=== PATIENT | female | born 1945 | race Caucasian/White ===

== ENCOUNTER 2017-03-27 12:42 | Inpatient (IN) | payer MEDICARE, BC ==
[2017-03-27 13:49] LABS: Hematocrit 30.7 % (36.0-47.0); Mean Platelet Volume 8.3 fL (7.4-10.4); Red Blood Cell (RBC) Count 3.34 mill/uL (4.20-5.40); White Blood Cell (WBC) Count 46.1 thou/uL (4.8-10.8)
[2017-03-27 14:05] LABS: ALT (SGPT) 30 U/L (8-55); AST (SGOT) 24 U/L (5-34); Alkaline Phosphatase 126 U/L (40-150); Anion Gap 14 mmol/L (10-20); BUN (Urea Nitrogen) 33 mg/dL (9.8-20.1); Bilirubin, Total 0.6 mg/dL (0.2-1.2); Calc. Creatinine Clearance 0 mL/min (70-130); Calcium 9.5 mg/dL (7.8-10.44); Carbon Dioxide 26 mmol/L (23-31); Chloride 97 mmol/L (98-107); Estimated GFR-MDRD 64; Protein, Total 6.9 g/dL (6.0-8.3)
[2017-03-27 14:09] LABS: Anisocytosis SLIGHT = 6-15 cells (100X) (0-5/hpf); Band 10 % (5-11); Metamyelocyte 2 % (0-0); Neutrophil 84 % (42-75); Ovalocytes SLIGHT = 2-5 cells (100X) (0-1/hpf); Polychromasia SLIGHT = 2-3 cells (100X) (0-2/hpf); Tear Drops SLIGHT = 2-5 cells (100X) (0-1/hpf); Toxic Granulation SLIGHT
[2017-03-27 14:31] LABS: Bilirubin Negative (Negative); Blood, Urine Negative (Negative); Glucose, Urine (Dipstick) >=1000 mg/dL (Negative); Ketone, Urine Negative (Negative); Nitrite Negative (Negative); Protein, Urine (Dipstick) Negative (Neg-Trace); Urobilinogen 0.2 mg/dL (0.2-1.0)
--- NOTE | 2017-03-27 15:57 | RAD ---
CHEST ONE VIEW: 03/27/17 HISTORY: Emergency exam. COMPARISON: Chest dated 10/12/16. FINDINGS: Port catheter tip sits at the inferior SVC. The lungs are clear. No pneumothorax or effusion. The ca rdiac silhouette and mediastinal contours are normal. There is enlargement of the pulmonary arteries. IMPRESSION: 1. Mild enlargement of the pulmonary arteries. 2. No acute intrathoracic abnormality. The known right upper lobe pulmonary nodule is not well seen on this examination. POS: [facility]
[2017-03-27] MEDS ORDERED: Ondansetron HCl/PF 4 MG/2 ML Vial IVP PRN (18:33)
[2017-03-27] MEDS ORDERED: Ondansetron ODT 4 MG TAB SL PRN (18:33)
[2017-03-27] MEDS ORDERED: HYDROcodone/Acetaminophen 5/325 mg Tablet PO PRN ×2 (18:33)
[2017-03-27] MEDS ORDERED: Acetaminophen 325 MG TAB PO PRN ×2 (18:33→21:18)
[2017-03-27] MEDS: Sodium Chloride 0.45% 1,000 ML IV SCH (21:08)
[2017-03-27] MEDS ORDERED: Ondansetron ODT 4 MG TAB PO PRN (21:18)
[2017-03-28 05:43] LABS: Anion Gap 13 mmol/L (10-20); BUN (Urea Nitrogen) 22 mg/dL (9.8-20.1); Calc. Creatinine Clearance 73 mL/min (70-130); Calcium 9.5 mg/dL (7.8-10.44); Carbon Dioxide 26 mmol/L (23-31); Chloride 100 mmol/L (98-107); Estimated GFR-MDRD 79
[2017-03-28 05:57] LABS: Band 8 % (5-11); Hematocrit 26.9 % (36.0-47.0); Mean Platelet Volume 8.7 fL (7.4-10.4); Neutrophil 89 % (42-75); Red Blood Cell (RBC) Count 2.89 mill/uL (4.20-5.40); White Blood Cell (WBC) Count 35.7 thou/uL (4.8-10.8)
[2017-03-28] MEDS ORDERED: Levothyroxine Sodium 75 MCG TAB PO SCH (06:00)
[2017-03-28] MEDS: Sodium Chloride 0.45% 1,000 ML IV SCH (06:24)
--- NOTE | 2017-03-28 08:24 | PDOC.FM ---
- Subjective Subjective: The patient reports improvement in her symptoms. She denies any dizziness, lightheadedness, blurry vision, SOB, chest pain, abdominal pain, N/V. She has been eating and drinking well. She has been up walking around with no difficulty. - Objective MAR Reviewed: Yes Vital Signs & Weight: Vital Signs (12 hours) Temp Pulse Resp BP Pulse Ox 03/28/17 08:00 99 F 87 16 97 03/28/17 04:18 97.9 F 89 16 126/69 98 03/28/17 00:36 98.9 F 90 16 130/59 L 98 Weight Weight 64.501 kg Result Diagrams: 03/28/17 04:49 03/28/17 04:49 Phys Exam - Physical Examination Constitutional: NAD HEENT: moist MMs Respiratory: no wheezing, no rales, no rhonchi, clear to auscultation bilateral Cardiovascular: RRR, no significant murmur, no rub Gastrointestinal: soft, non-tender, no distention, positive bowel sounds Musculoskeletal: no edema, pulses present Neurological: non-focal, moves all 4 limbs Psychiatric: normal affect, A&O x 3 Dx/Plan (1) Pre-syncope Status: Acute Plan: Likely orthostatic hypotension vs medication side effect from Neulasta. Will rule out cardiac causes -TTE -Carotid Dopplers -Orthostatic vitals (2) Pancreatic cancer metastasized to liver Code(s): C25.9 - MALIGNANT NEOPLASM OF PANCREAS, UNSPECIFIED; C78.7 - SECONDARY MALIG NEOPLASM OF LIVER AND INTRAHEPATIC BILE DUCT Status: Chronic Plan: Stage 4 pancreatic cancer, Dr. Monge is oncologist Recent treatment with Neulasta. Has chemo port in R side of chest. (3) History of pulmonary embolism Code(s): Z86.711 - PERSONAL HISTORY OF PULMONARY EMBOLISM Status: Acute Plan: Patient had elevated d-dimer to 0.5, but has h/o bilateral PE and is on Xarelto - she is very compliant with medications -Continue Xarelto (4) Leukocytosis Code(s): D72.829 - ELEVATED WHITE BLOOD CELL COUNT, UNSPECIFIED Status: Acute Qualifiers: Leukocytosis type: unspecified Qualified Code(s): D72.829 - Elevated white blood cell count, unspecified Plan: WBC count elevated to 46 initially, now 36 - likely 2/2 Neulasta -Will monitor (5) Anemia Code(s): D64.9 - ANEMIA, UNSPECIFIED Status: Acute Qualifiers: Anemia type: unspecified type Qualified Code(s): D64.9 - Anemia, unspecified Plan: Patient has chronic anemia, stable -Will monitor (6) Thrombocytopenia Code(s): D69.6 - THROMBOCYTOPENIA, UNSPECIFIED Status: Acute Plan: Thrombocytopenia, downtrending -Will monitor (7) CKD (chronic kidney disease) stage 2, GFR 60-89 ml/min Code(s): N18.2 - CHRONIC KIDNEY DISEASE, STAGE 2 (MILD) Status: Acute Plan: CKD stage 2, stable -Will monitor (8) Hypothyroidism Code(s): E03.9 - HYPOTHYROIDISM, UNSPECIFIED Status: Acute Qualifiers: Hypothyroidism type: unspecified Qualified Code(s): E03.9 - Hypothyroidism , unspecified Plan: continue synthroid (9) Hypertension Code(s): I10 - ESSENTIAL (PRIMARY) HYPERTENSION Status: Chronic Qualifiers: Hypertension type: essential hypertension Plan: Continue home meds
[2017-03-28] MEDS ORDERED: Alogliptin 25 MG TAB PO SCH (09:00)
[2017-03-28] MEDS ORDERED: Amlodipine 5 mg/Benazepril 10 mg CAP PO SCH (09:00)
[2017-03-28] MEDS ORDERED: Aspirin 81 mg Enteric Coated Tablet PO SCH (09:00)
[2017-03-28] MEDS ORDERED: Rivaroxaban 15 MG TAB PO SCH (09:00)
[2017-03-28] MEDS ORDERED: Atenolol 50 MG TAB PO SCH (09:00)
[2017-03-28] MEDS ORDERED: Ubidecarenone 50 MG CAP PO SCH (09:00)
[2017-03-28] MEDS ORDERED: FLU VACC TS2017-18 (>65YR) 0.5 ML SYRINGE IM ONE (09:00)
[2017-03-28] MEDS ORDERED: Famotidine 20 MG TAB PO SCH (09:00)
[2017-03-28 10:43] VITALS: TEMP 99
[2017-03-28 11:40] VITALS: BP 123/57
--- NOTE | 2017-03-28 12:16 | ULT ---
ULTRASOUND CAROTID DOPPLER: Date: 03/28/17 HISTORY: Presyncope. COMPARISON: None. TECHNIQUE: Real-time Dickey scale, color Doppler, and spectral analysis of the extracranial carotid arteries and vertebral arteries. FINDINGS: There is elevated peak systolic velocity in the distal right internal carotid artery. Right vertebra l artery is patent. Antegrade flow. Left vertebral artery is patent with antegrade flow. No elevated peak systolic velocity of any left internal carotid artery. IMPRESSION: 1. 50-69% stenosis of the distal right internal carotid artery. CT angiogram may be beneficial. 2. Antegrade flow both vertebral arteries. CODE T. POS: [facility]
--- NOTE | 2017-03-28 16:11 | EKG ---
Test Reason : Blood Pressure : / mmHG Vent. Rate : 087 BPM Atrial Rate : 087 BPM P-R Int : 192 ms QRS Dur : 090 ms QT Int : 388 ms P-R-T Axes : 055 042 032 degrees QTc Int : 466 ms Normal sinus rhythm Normal ECG When compared with ECG of 27-MAR-2017 13:09, (Unconfirmed) Nonspecific T wave abnormality no longer evident in Anterior leads Confirmed by DR. Adenike SALGADO ([id number]) on 03/28/2017 4:10:56 PM Referred By: MALIKA Confirmed By:DR. Adenike SALGADO
--- NOTE | 2017-03-28 19:28 | ADD-PRG ---
ADDENDUM DATE OF SERVICE: 03/28/2017 This is an addendum to the note of Dr. Kavita Lawrence. Ms. Chan is a pleasant 71-year-old white female who unfortunately has a stage IV pancreatic can cer and is on chemotherapy. 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 She is completely asymptomatic now and is having no issues whatever. S he is completely awake, alert, oriented, and in no distress. I doubt that these symptoms represents TIA, which she is undergoing a TIA type workup. Her carotid Doppler study shows a 50% to 69% steno sis of the right internal carotid artery and CTA has been advised by the radiologist. Given her andrade creatic cancer, I am uncertain how aggressive we are going to be in working up her further. In the event, she is clinically and neurologically stable at this point and we await further testing.
[2017-03-28] MEDS ORDERED: Atorvastatin Calcium 10 MG TAB PO SCH (21:00)
--- NOTE | 2017-03-29 13:47 | EKG ---
Test Reason : Blood Pressure : / mmHG Vent. Rate : 080 BPM Atrial Rate : 080 BPM P-R Int : 184 ms QRS Dur : 090 ms QT Int : 396 ms P-R-T Axes : 061 039 027 degrees QTc Int : 456 ms Normal sinus rhythm Normal ECG Confirmed by ANA LEE, CHEN ([id number]), multimedia editor NANNETTE PEREZ ([id number]) on 03/29/2017 1:47:00 PM Referred By: Confirmed By:CHEN PEREZ MD
--- NOTE | 2017-03-30 20:26 | DIS-2 ---
DATE OF ADMISSION: 03/27/2017 DATE OF DISCHARGE: 03/28/2017 ADMITTING RESIDENT: Bennie Marie DO DISCHARGE RESIDENT: Kavita Lawrence MD ADMITTING ATTENDING: Bettye Hernandez M.D. DISCHARGE ATTENDING: Sunil Moon MD. CONSULTATIONS: None. PROCEDURES: None. IMAGING DATA: 1. Carotid Doppler study showed 50%-69% stenosis of the distal right internal carotid artery. CT a ngiogram may be beneficial, antegrade flow in both vertebral arteries. 2. Chest x-ray, mild enlargement of the pulmonary arteries, known right upper lobe pulmonary nodule , not well seen on this examination. No acute intrathoracic abnormality. PRIMARY DIAGNOSES: 1. Presyncope. 2. Leukocytosis. 3. Thrombocytopenia. 4. Anemia. 5. Stage IV pancreatic cancer. SECONDARY DIAGNOSES: 1. History of pulmonary embolism. 2. Chronic kidney disease stage 2. 3. Hypothyroidism. 4. Hypertension. DISCHARGE MEDICATIONS: 1. Januvia 100 mg p.o. q.a.m. 2. CoQ10 200 mg p.o. b.i.d. 3. Xarelto 15 mg p.o. b.i.d. 4. Compazine 10 mg p.o. q. 6 hours p.r.n. 5. Omeprazole 20 mg p.o. daily. 6. Morphine ER 30 mg p.o. b.i.d. 7. Synthroid 75 mcg p.o. at bedtime. 8. Farxiga 10 mg p.o. q.a.m. 9. Atorvastatin 10 mg p.o. daily. 10. Atenolol 50 mg p.o. q.a.m. 11. Aspirin 81 mg p.o. daily. 12. Amlodipine/benazepril 5mg/10 mg 1 cap p.o. daily. DISCONTINUED MEDICATIONS: None. HOSPITAL COURSE: This is a 71-year-old female with past medical history of stage IV pancreatic canc er, hypothyroidism, hypertension, previous PE, who presented to the ED after almost passing out and was found to have an elevated white count to 46,000. She had recently had a dose of Neulasta and th is was likely the cause of her leukocytosis. She reports that she has not had as much to drink as s he probably should have sometimes, difficult to force herself to drink fluids throughout the day. S he was given fluids which improved her symptoms significantly. She had an elevated D-dimer at 0.5, but she is on Xarelto for a previous pulmonary embolism and is compliant with her medication and she is not having any tachycardia or tachypnea. I encouraged her to continue taking her Xarelto. She may have had some element of hyperviscosity from the leukocytosis causing her symptoms as well. An echo was done, the results are still pending. Carotid Dopplers were ordered that showed 50%-69% emma nosis of the distal right internal carotid artery and recommended CT angiogram. This result was don e after the patient was already discharged, so Dr. Alicea, who is the patient's primary care physicia n, will need to follow up on this. DISPOSITION: Stable. DISCHARGE INSTRUCTIONS: 1. Location: Home. 2. Diet: Heart healthy. 3. Activity: As tolerated. 4. Follow up with Dr. Alicea within 7 days to discuss the results of the carotid Doppler study.
--- NOTE | 2017-03-30 21:31 | HP-2 ---
DATE OF SERVICE: 03/27/2017 DATE OF ADMISSION: 03/27/2017 LOCATION: [place], [place]. COSIGNER: Sunil Moon MD CODE STATUS: DO NOT RESUSCITATE. PRIMARY CARE PHYSICIAN: Steve Alicea M.D. ATTENDING PHYSICIAN: Sunil Moon MD RESIDENT PHYSICIAN: Bennie Marie DO HISTORY: Provided by the patient. CHIEF COMPLAINT: Dizziness, presyncope. 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 She reports EMS was called and stabilized her. They then left the scene. Afte r she recovered, however, she experienced another similar episode shortly after that and was subsequ ently taken to the emergency department. The patient states she was given a Neulasta one day prior to these events and per the patient and her the last time she received this medication she h ad similar type symptoms, but additionally some associated shortness of breath. In the ED, she was given Tylenol and Zofran. PAST MEDICAL HISTORY: 1. Pancreatic cancer on chemotherapy, history of pulmonary embolism, currently being treated on Xar elto. 2. Type 2 diabetes. 3. Hypertension. 4. Hypothyroid. 5. Gastroesophageal reflux disease. PAST SURGICAL HISTORY: MediPort. ALLERGIES: CEPHALOSPORINS and BACTRIM. MEDICATIONS: 1. Januvia 100 mg daily. 2. Levothyroxine 75 mcg daily. 3. Atenolol 50 mg daily. 4. Chlorthalidone 25 mg daily. 5. Potassium chloride 10 mEq 2 times a day. 6. Farxiga 10 mg daily. 7. Xarelto 20 mg daily. 8. Glimepiride. 9. Tramadol. 10. Morphine. 11. Ativan. 12. [place]. SOCIAL HISTORY: Nonsmoker, nondrinker, no drug use. REVIEW OF SYSTEMS: General: Patient denies fever, chills, weight, appetite and sleep changes. Denies fatigue. Eyes: Patient complains of vision changes prior to the episode; however, reports they are returned to [facility] now. ENT: Denies nasal congestion or rhinorrhea. Respiratory: Denies cough, congestion, sh ortness of breath and exercise intolerance. Cardiovascular: Denies chest pain, palpitations. Amado rointestinal: Denies nausea, vomiting, diarrhea, constipation, abdominal pain. Neurologic: Compla ins of weakness and presyncopal episode as well as dizziness. PHYSICAL EXAMINATION: VITAL SIGNS: Blood pressure 110/55, pulse 91, respirations 16, T-max 99, pulse ox 97% on room air, current weight 55 kilograms. GENERAL: Patient is alert, oriented, no acute distress, well-nourished, appropriately interactive. EYES: Conjunctivae within normal limits. CARDIOVASCULAR: Regular rate and rhythm. No murmurs, rubs or gallops. Radial pulse 2+. Pedal pul se 2+. RESPIRATORY: Normal effort, no retractions. LUNGS: Clear to auscultation bilaterally. SKIN: Warm and dry. No cyanosis. ABDOMEN: Soft, nontender. Normoactive bowel sounds in all 4 quadrants. No masses, distention or o rganomegaly. EXTREMITIES: No clubbing, cyanosis or edema. NEUROLOGIC: No focal deficits. Cranial nerves II-XII are intact. GCS 15. LABORATORY DATA: White blood cell count 46,000, hemoglobin 9.3, hematocrit 30.7, platelets 108. So dium 133, potassium 3.8, chloride 97, bicarbonate 26, BUN 33, creatinine 0.88, glucose 249, calcium 9.5, total protein 6.9, albumin 3.9, AST 24, ALT 30, alkaline phosphatase 136, total bilirubin 0.6. D-dimer 0.5. EKG showed normal sinus rhythm. Chest x-ray showed mild enlargement of the pulmonary arteries, but no acute intrathoracic abnormalit y. ASSESSMENT AND PLAN: 1. Presyncope. We will admit for observation and telemetry, check carotid Dopplers. Get a transth oracic echocardiogram. Check orthostatics. Patient will be given light IV fluid hydration at 100 m L per hour normal saline. 2. History of pulmonary embolism. The patient will be continued on Xarelto. 3. Hypertension. Resume home medications. 4. Pancreatic cancer. Control pain while in the hospital. Consider Oncology consult if patient st ays extended.. 5. Type 2 diabetes. Continue home medications. 6. Hypothyroid. Continue home medications. 7. Prophylaxis. The patient will be placed on SCDs, continued with Xarelto for deep venous thrombo sis prophylaxis and given a PPI for gastrointestinal prophylaxis. DISPOSITION: Length of hospital stay is less than or equal 2 days. Symptomatic medication will be provided. History and physical exam as well as management was discussed with Dr. Sunil Moon, who agrees wi th the above history, physical exam, assessment and plan as otherwise noted in his addendum.
== END 2017-03-28 13:34 | disposition home or self-care (01) | DRG 815 ==
LOC: ERS 12:42 → T4-A 17:09 → 2SE 03-28
PROVIDERS: ADMIT Family Medicine; ATTEND Family Medicine
DX: D72.829 Elevated white blood cell count, unspecified (principal); C25.9 Malignant neoplasm of pancreas, unspecified; C78.7 Secondary malignant neoplasm of liver and intrahepatic bile duct; E11.22 Type 2 diabetes mellitus with diabetic chronic kidney disease; D69.6 Thrombocytopenia, unspecified; D64.9 Anemia, unspecified; I65.21 Occlusion and stenosis of right carotid artery; I12.9 Hypertensive chronic kidney disease with stage 1 through stage 4 chronic kidney disease, or unspecified chronic kidney disease; T45.8X5A Adverse effect of other primarily systemic and hematological agents, initial encounter; Z66 Do not resuscitate; Z86.711 Personal history of pulmonary embolism; Z79.01 Long term (current) use of anticoagulants; Z92.21 Personal history of antineoplastic chemotherapy; N18.2 Chronic kidney disease, stage 2 (mild); E03.9 Hypothyroidism, unspecified; K21.9 Gastro-esophageal reflux disease without esophagitis
CPT/HCPCS: 36415; 36416; 71010; 80048; 80053; 81003; 85025; 85379; 93005; 93010; 93306; 93880; 94760

== ENCOUNTER 2017-04-15 15:59 | Day surgery (SDC) | payer MEDICARE, BC ==
[2017-04-15] MEDS ORDERED: diphenhydrAMINE 25 MG CAP PO SCH (17:00)
[2017-04-15] MEDS ORDERED: Acetaminophen 500 MG TAB PO SCH (17:00)
[2017-04-15 23:19] VITALS: BP 151/71; TEMP 97.8
== END 2017-04-15 23:51 | disposition home or self-care (01) ==
LOC: ONC/OP 15:59
PROVIDERS: ATTEND Internal Medicine Medical Oncology
PROC: 30233N1 Transfusion of Nonautologous Red Blood Cells into Peripheral Vein, Percutaneous Approach (ICD-10-PCS; principal; 2017-04-15)
DX: D64.9 Anemia, unspecified (principal); D69.59 Other secondary thrombocytopenia; C25.9 Malignant neoplasm of pancreas, unspecified; E11.9 Type 2 diabetes mellitus without complications; I10 Essential (primary) hypertension; E03.9 Hypothyroidism, unspecified; K21.9 Gastro-esophageal reflux disease without esophagitis; Z79.84 Long term (current) use of oral hypoglycemic drugs; Z79.1 Long term (current) use of non-steroidal anti-inflammatories (NSAID); Z79.82 Long term (current) use of aspirin; Z79.01 Long term (current) use of anticoagulants; Z79.891 Long term (current) use of opiate analgesic; Z79.2 Long term (current) use of antibiotics; Z79.899 Other long term (current) drug therapy; Z88.1 Allergy status to other antibiotic agents; Z88.2 Allergy status to sulfonamides; Z91.040 Latex allergy status; Z95.828 Presence of other vascular implants and grafts; Z86.711 Personal history of pulmonary embolism
CPT/HCPCS: 36430; 86850; 86900; 86901; P9016

== ENCOUNTER 2017-05-21 13:00 | Outpatient (CLI) | payer MEDICARE, BC | END 2017-05-21 13:01 | disposition home or self-care (01) | LOC: BICRAD 13:00 | PROVIDERS: ATTEND Internal Medicine Medical Oncology | DX: C25.2 Malignant neoplasm of tail of pancreas (principal); J98.4 Other disorders of lung | CPT/HCPCS: 71020; 80053; 82248; 83615; 84100; 84550; 86301 ==

== ENCOUNTER 2017-05-27 09:08 | Outpatient (CLI) | payer MEDICARE, BC ==
[2017-05-27] MEDS ORDERED: Iopamidol 370 76% 100 ML VIAL ONE (11:39)
--- NOTE | 2017-05-27 12:26 | CT ---
CT CHEST AND ABDOMEN WITH IV CONTRAST: INDICATIONS: History of pancreatic cancer with hepatic metastatic disease. COMPARISON: Prior CT of the chest, abdomen, and pelvis dated 10/10/[address] of the abdomen and pelvis dated . FINDINGS: The 5 mm pulmonary nodule within the right upper lobe is stable. No new pulmonary nodule is evident. There is mild bibasilar atelectasis. There are shotty appearing lymph nodes within the mediastinum. The right chest wall port is stable. There are scattered vascular calcifications involving the coronary artery and thoracic aorta. There is mild bibasilar atelectasis with small bilateral pleural effusions, which is new. The 1.2 cm hypodense nodule involving the right hepatic lobe on image 51 of series 2 is stable. The 2.4 x 3.1 cm hypodense mass involving the right hepatic lobe in segment 6 is stable, on image 62 of s eries 2. The heterogeneous but predominantly hypodense pancreatic tail mass is slightly decreased in size, now measuring 2.7 x 1.7 cm. The hypodensity involving the inferior pole of the left spleen has diminished in size. There is some cortical retraction seen involving the lower aspect of the spleen, likely reflecting sequela of a pr ior partial splenic wedge infarction. There are bilateral renal cysts that are similar. No definite pathologically enlarged lymph nodes ar e seen within the upper abdomen. There are scattered vascular calcifications. No definite acute osseous abnormality is evident. There is a stable sclerotic lesion within the righ t aspect of L4, suspicious for a small bone island. There is a stable hemangioma within the right aspect of T4. There is an additional suspected bony he mangioma seen within the right aspect of T7. IMPRESSION: 1. Hypodense mass involving the pancreatic tail has decreased in size, likely reflecting response to therapy. 2. Right upper lobe pulmonary nodule and hepatic lesions are stable. 3. Stable bilateral renal cysts. 4. Slight interval decrease of the hypodensity involving the inferior pole of the spleen, likely ref lecting sequela of a healing partial splenic infarction. POS: [facility]
== END 2017-05-27 09:09 | disposition home or self-care (01) ==
LOC: CT 09:08
PROVIDERS: ATTEND Internal Medicine Medical Oncology
DX: C25.2 Malignant neoplasm of tail of pancreas (principal); R91.1 Solitary pulmonary nodule; K76.9 Liver disease, unspecified; N28.1 Cyst of kidney, acquired; D73.89 Other diseases of spleen; K86.89 Other specified diseases of pancreas
CPT/HCPCS: 71260; 74160

== ENCOUNTER 2017-07-11 09:43 | Outpatient (CLI) | payer MEDICARE, BC ==
--- NOTE | 2017-07-11 14:15 | CT ---
CT CHEST WITH IV CONTRAST CT ABDOMEN WITH IV CONTRAST: HISTORY: Malignant neoplasm tail of pancreas, calcium of pancreas. The patient is currently on chemotherapy. FINDINGS: Comparison is made with the exam of 05/27/17. No mediastinal, hilar, or axillary mass or lymphadenopathy is see. A few prominent mediastinal lymph nodes are stable. No pleural or pericardial effusions are identified. The 5 mm parenchymal nodule in the right upper lobe and the 3 mm nodule in the left upper lobe are stable. No new pulmonary nodu les or masses are seen. The 3 cm mass in the posterior segment of the right lobe of the liver is stable. The low-density les ion in the anterior aspect of the liver adjacent the falciform ligament appears smaller on the curren t exam. No new liver lesions are seen. No calcified gallstones are seen. Bilateral renal cysts are again noted. Adrenal glands are unremarkable. The 2.7 cm predominately hypodense pancreatic tail mass is stable. Hypodensity in the spleen and cortical infarction in the spleen are again seen. No free air, free fluid, or lymphadenopathy is noted in the abdomen. There are vascular calcificatio ns without evidence of aneurysmal dilatation of the thoracoabdominal aorta. The circumaortic left re nal vein is seen. The small bowel loops are not abnormally dilated. There are hemangiomas in the T4 and T7 vertebrae and small sclerotic lesion within the right aspect o f L4 and likely bone island are again seen. No new osteoblastic lesions are identified. IMPRESSION: No significant interval change since 05/27/17. POS: [facility]
[2017-07-11] MEDS ORDERED: Iopamidol 370 76% 100 ML VIAL ONE (17:18)
== END 2017-07-11 09:44 | disposition home or self-care (01) ==
LOC: CT 09:43
PROVIDERS: ATTEND Internal Medicine Medical Oncology
DX: C25.2 Malignant neoplasm of tail of pancreas (principal); Z88.2 Allergy status to sulfonamides; Z88.1 Allergy status to other antibiotic agents
CPT/HCPCS: 71260; 74160

== ENCOUNTER 2017-09-25 09:02 | Outpatient (CLI) | payer MEDICARE, BC ==
[2017-09-25] MEDS ORDERED: ISOVUE-370 76%-LOCM 1 ML ONE (13:22)
== END 2017-09-25 09:03 | disposition home or self-care (01) ==
LOC: BICCT 09:02
PROVIDERS: ATTEND Internal Medicine Medical Oncology
DX: C25.2 Malignant neoplasm of tail of pancreas (principal); R91.8 Other nonspecific abnormal finding of lung field; K76.89 Other specified diseases of liver
CPT/HCPCS: 71260; 74177

== ENCOUNTER 2017-12-01 17:52 | Emergency (ER) | payer MEDICARE, BC ==
[2017-12-01 19:08] LABS: Hemoglobin 8.8 g/dL (12.0-16.0); Mean Corpuscular HGB CONC 33.6 g/dL (32.0-36.0); Mean Corpuscular Hemoglobin 31.2 pg (27.0-31.0); Mean Corpuscular Volume 92.8 fL (78.0-98.0); Platelet Count 32 thou/uL (130-400); RBC Distribution Width 17.2 % (11.5-14.5); Red Blood Cell (RBC) Count 2.83 mill/uL (4.20-5.40); White Blood Cell (WBC) Count 18.4 thou/uL (4.8-10.8)
--- NOTE | 2017-12-01 19:14 | RAD ---
FOUR VIEWS LEFT KNEE: Date: 12-01-17 Comparison: None. History: Pain, malignancy. FINDINGS: There is mild to moderate degenerative change involving the medial and lateral compartments with join t space narrowing, subchondral sclerosis and osteophyte formation. There is a moderate knee joint eff usion. There is severe patellofemoral joint space narrowing with osteophyte formation and subchondral sclerosis. No displaced fracture or dislocation. Rounded calcification projects posterior to the kne e joint on the lateral view measuring 1.1 cm which may represent intraarticular loose body formation. IMPRESSION: Prominent degenerative change. Knee joint effusion. No acute fracture or dislocation seen. POS: [facility]
[2017-12-01 19:20] LABS: ALT (SGPT) 28 U/L (8-55); AST (SGOT) 19 U/L (5-34); Albumin 3.7 g/dL (3.4-4.8); Alkaline Phosphatase 150 U/L (40-150); Anion Gap 12 mmol/L (10-20); BUN (Urea Nitrogen) 17 mg/dL (9.8-20.1); Bilirubin, Total 0.3 mg/dL (0.2-1.2); Calc. Creatinine Clearance 0 mL/min (70-130); Calcium 9.1 mg/dL (7.8-10.44); Carbon Dioxide 25 mmol/L (23-31); Chloride 101 mmol/L (98-107); Estimated GFR-MDRD 55; Globulin 2.6 g/dL (2.4-3.5); Glucose 106 mg/dL (83-110); Potassium 3.4 mmol/L (3.5-5.1); Protein, Total 6.3 g/dL (6.0-8.3); Sodium 135 mmol/L (136-145)
[2017-12-01] MEDS ORDERED: Ondansetron HCl/PF 4 MG/2 ML Vial ONE (19:34)
[2017-12-01 19:37] LABS: Anisocytosis SLIGHT = 6-15 cells (100X) (0-5/hpf); Band 8 % (5-11); Lymphocytes 1 % (21-51); MDiff Complete? YES; Monocytes 1 % (0-10); Neutrophil 90 % (42-75); Ovalocytes SLIGHT = 2-5 cells (100X) (0-1/hpf); PLT Morphology Comment Appears Decreased; Tear Drops SLIGHT = 2-5 cells (100X) (0-1/hpf)
[2017-12-01] MEDS ORDERED: Lidocaine 1% w/Epinephrine 1:100K 20 ML VIAL ONE (19:55)
[2017-12-01] MEDS ORDERED: HYDROcodone/Acetaminophen 5/325 mg Tablet ONE (20:43)
== END 2017-12-01 20:50 | disposition home or self-care (01) ==
LOC: ERS 17:52
DX: M25.462 Effusion, left knee (principal); M17.12 Unilateral primary osteoarthritis, left knee; T45.1X5A Adverse effect of antineoplastic and immunosuppressive drugs, initial encounter; E11.9 Type 2 diabetes mellitus without complications; C25.9 Malignant neoplasm of pancreas, unspecified; I10 Essential (primary) hypertension; Z79.899 Other long term (current) drug therapy; Z79.84 Long term (current) use of oral hypoglycemic drugs
CPT/HCPCS: 20610; 80053; 85025; 85652; 86140; 87070; 87205; 96374; 96375; J2001; J2270; J2405

== ENCOUNTER 2017-12-08 09:59 | Outpatient (CLI) | payer MEDICARE, BC | END 2017-12-08 10:00 | disposition home or self-care (01) | LOC: BICRAD 09:59 | PROVIDERS: ATTEND Internal Medicine Medical Oncology | DX: C25.2 Malignant neoplasm of tail of pancreas (principal) | CPT/HCPCS: 71046; 80053; 81001; 82248; 83615; 84100; 84550; 87086 ==

== ENCOUNTER 2017-12-12 10:46 | Day surgery (SDC) | payer MEDICARE, BC ==
[2017-12-11 14:48] VITALS: BMI 23.4
[2017-12-12] MEDS ORDERED: Lidocaine 2% 10 ML INJ ONE (12:24)
[2017-12-12] MEDS ORDERED: Bupivacaine/Epinephrine 0.25% 30 ML VIAL ONE (12:39)
[2017-12-12] MEDS ORDERED: Levofloxacin 500 mg/D5W 100 ml Premix Bag ONE (13:05)
[2017-12-12] MEDS ORDERED: Fentanyl 100 MCG/2 ML VIAL ONE (13:12)
--- NOTE | 2017-12-12 14:30 | RAD ---
AP VIEW OF THE CHEST: INDICATION: Postop MediPort placement. COMPARISON: Prior exam dated 03/27/17. FINDINGS: There is a left IJ chest wall port in place. The previously seen right IJ chest wall port has been r emoved. Typical calcification is seen of the SVC. Lungs are clear. No acute osseous abnormality is evident. Mild cardiomegaly is stable. IMPRESSION: New left internal jugular chest wall port without evidence of complication. Removal of previously se en right internal jugular chest wall port. POS: [facility]
[2017-12-12] MEDS ORDERED: Lidocaine 1% PF 5 ML VIAL ONE (15:12)
--- NOTE | 2017-12-12 20:09 | OP ---
DATE OF PROCEDURE: 12/12/2017 PREOPERATIVE DIAGNOSIS: Pancreatic cancer. POSTOPERATIVE DIAGNOSIS: Pancreatic cancer. PROCEDURE: Tunneled central line subcutaneous port (MediPort, CT injectable). SURGEON: Dr. Castro. ANESTHESIA: TIVA local. ESTIMATED BLOOD LOSS: Minimal. COMPLICATIONS: None. SPECIMEN: None. FINDINGS: The tip of the catheter was at the atriocaval junction. TECHNIQUE: The patient was taken to the operating room and placed supine on the table. After genera l anesthetic was obtained, bilateral neck and chest is prepped and draped in a sterile fashion. Loca l anesthetic infiltrated over the left internal jugular vein. Intrajugular vein cannulated using a 2 2-gauge finder needle followed by a Seldinger needle. Wire was passed into the superior vena cava un sachin fluoroscopic guidance. A small amaury was made at the wire entrance site. A separate 3 cm is made in the left upper chest. Tubing for the MediPort tunneled from inferior to superior incision. Sutu re sheath was placed over the wire into the superior vena cava under fluoroscopic guidance. The dila tor wire removed. The end of the catheter shredded into the sheath as the sheath is peeled away. Th e tip of the catheter is at the atriocaval junction. Tubing is cut to fit the MediPort at the lower incision and the MediPort is sewn to the chest wall and subcutaneous pocket using Prolene. The wound s were irrigated. The MediPort is flushed with a heparin flush. The wounds are all closed using 3-0 Vicryl, 4-0 Monocryl, and Dermabond. The patient was en route to recovery in stable condition. All instrument counts, needle counts, and lap counts were correct.
== END 2017-12-12 14:57 | disposition home or self-care (01) ==
LOC: SDC 10:46
PROVIDERS: ATTEND Surgery
PROC: 0JH60XZ Insertion of Tunneled Vascular Access Device into Chest Subcutaneous Tissue and Fascia, Open Approach (ICD-10-PCS; principal; 2017-12-12)
PROC: 02HV33Z Insertion of Infusion Device into Superior Vena Cava, Percutaneous Approach (ICD-10-PCS; 2017-12-12)
PROC: B518ZZA Fluoroscopy of Superior Vena Cava, Guidance (ICD-10-PCS; 2017-12-12)
DX: C25.9 Malignant neoplasm of pancreas, unspecified (principal); Z91.040 Latex allergy status; Z88.1 Allergy status to other antibiotic agents; Z88.2 Allergy status to sulfonamides; Z88.8 Allergy status to other drugs, medicaments and biological substances; Z79.899 Other long term (current) drug therapy
CPT/HCPCS: 36561; 71045; 82962; C1788; 36416; J1642; J1956; J2001; J3010

== ENCOUNTER 2017-12-26 09:00 | Outpatient (CLI) | payer MEDICARE, BC ==
[2017-12-26] MEDS ORDERED: ISOVUE-370 76%-LOCM 1 ML ONE (11:53)
== END 2017-12-26 09:01 | disposition home or self-care (01) ==
LOC: BICCT 09:00
PROVIDERS: ATTEND Internal Medicine Medical Oncology
DX: C25.2 Malignant neoplasm of tail of pancreas (principal); C78.7 Secondary malignant neoplasm of liver and intrahepatic bile duct; R91.8 Other nonspecific abnormal finding of lung field; R16.0 Hepatomegaly, not elsewhere classified
CPT/HCPCS: 71260; 74160

== ENCOUNTER 2018-02-24 11:44 | Outpatient (CLI) | payer MEDICARE, BC ==
--- NOTE | 2018-02-24 14:38 | RAD ---
CHEST TWO VIEWS: History: Cough x 2 weeks. Comparison: 12-12-17 FINDINGS: Left sided Mediport catheter terminates in the SVC/right atrial junction. Normal cardiac silhouette. There is atherosclerosis of the aorta. Pulmonary vessels are upper limits of normal. Increased inters titial opacities are noted. No consolidation. No pleural effusion or pneumothorax. IMPRESSION: 1. Pulmonary vascular prominence. 2. Interstitial prominence, correlate for edema. Superimposed infiltrate cannot be excluded. Continue d surveillance is recommended. POS: [facility]
== END 2018-02-24 11:45 | disposition home or self-care (01) ==
LOC: BICRAD 11:44
PROVIDERS: ATTEND Family Medicine
DX: R05 Cough (principal)
CPT/HCPCS: 71046

== ENCOUNTER 2018-03-16 13:14 | Outpatient (CLI) | payer MEDICARE, BC ==
--- NOTE | 2018-03-16 15:41 | RAD ---
CHEST 2 VIEWS: COMPARISON: 02/24/2018. HISTORY: Pancreatic cancer. FINDINGS: Atherosclerosis of the aorta. Stable left-sided MediPort catheter. Normal cardiac silhouette. The pulmonary vessels and hilum are normal. Costophrenic angles are clear. No mass. No consolidation. No pneumothorax or osseous abnormalities. IMPRESSION: No acute cardiopulmonary process. POS: [facility]
== END 2018-03-16 13:15 | disposition home or self-care (01) ==
LOC: BICRAD 13:14
PROVIDERS: ATTEND Internal Medicine Medical Oncology
DX: C25.2 Malignant neoplasm of tail of pancreas (principal)
CPT/HCPCS: 71046

== ENCOUNTER 2018-03-20 09:57 | Outpatient (CLI) | payer MEDICARE, BC ==
[2018-03-20] MEDS ORDERED: Iopamidol 370 76% 100 ML VIAL ONE (10:38)
--- NOTE | 2018-03-20 17:26 | CT ---
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 Followup pancreatic cancer. Metastatic lesions to the dani er. COMPARISON: 12/26/17. CT THORAX: Left sided Mediport catheter remains in lace. There is an area of scarring and soft tissue density se en in the region of previous Mediport in the right upper chest. Subcutaneous emphysema in this region has resolved. Tip of the left internal jugular vein Mediport catheter is within the distal SVC. Vascular calcifications are again seen in the coronary arteries and involving the thoracic aorta. Calcifications seen in the left lobe of the thyroid gland. No enlarged lymph nodes are seen by CT size criteria. There is stable lymph nodes in a pretracheal lo cation but are not enlarged. There is a stable 5 mm pulmonary nodule in the medial aspect of the right upper lobe as well as a sta ble approximately 4 mm pulmonary nodule in the left upper lobe. There has been interval development o f a few tiny 3 mm or less pulmonary nodules within the right middle lobe and right lower lobe as well as at the left lower lobe. There is also a pleural based nodular density measuring 7 mm at the poste romedial right lung base with a few adjacent tiny pulmonary nodules which were not seen on prior exam . No lytic or sclerotic osseous lesions are seen. Mild degenerative changes are seen in the thoracic sp ine. CT ABDOMEN: Hypodense lesion within the inferior aspect posterior segment right hepatic lobe is again seen. Howev er, this lesion has enlarged previously measuring 3.2 cm in greatest dimension, now measures 3.8 cm. No additional hepatic lesion is appreciated. Previously noted lesion in the tail of the pancreas is n ot visualized. There are linear areas of diminished attenuation, but no discrete measureable mass is seen. Linear area of diminished attenuation is again seen in the spleen. Subcentimeter too small to characterize hypodense lesions are again seen in each kidney. The bilateral adrenal glands and opacified small bowel demonstrate a normal CT appearance. Vascular calcifications seen in the abdominal aorta and involving the iliac arteries. Incidental note is made of a retroaortic left renal vein. There is a stable sclerotic density seen within the L4 vertebral body which has characteristics most suggestive of a bone island. No additional lytic or sclerotic osseous lesions are identified. IMPRESSION: 1. Mild interval enlargement of the hypodense metastatic lesion in the posterior segment right h epatic lobe. 2. Small bilateral pulmonary nodules, but there has also been interval development of new pulmon alek nodules measuring 4 mm or less scattered within the lungs as described above, greater number at t he right lung base compared to the prior exam. 3. Previously noted cystic mass tail of the pancreas is not visualized. There is diminished atte nuation now present in this region. 4. No evidence of lymphadenopathy. 5. Stable enlargement of the thyroid gland with calcification in the left lobe of the thyroid gl and. 6. Interval placement of a left internal jugular vein Mediport catheter. POS: BRAYAN
== END 2018-03-20 09:58 | disposition home or self-care (01) ==
LOC: CT 09:57
PROVIDERS: ATTEND Internal Medicine Medical Oncology
DX: C25.2 Malignant neoplasm of tail of pancreas (principal); K76.9 Liver disease, unspecified; R91.8 Other nonspecific abnormal finding of lung field; E04.9 Nontoxic goiter, unspecified; E07.9 Disorder of thyroid, unspecified
CPT/HCPCS: 71260; 74160; 82565

== ENCOUNTER 2018-07-14 08:58 | Outpatient (CLI) | payer MEDICARE, BC ==
[2018-07-14] MEDS ORDERED: ISOVUE-370 76%-LOCM 1 ML ONE (09:56)
--- NOTE | 2018-07-14 11:31 | CT ---
CT CHEST WITH CONTRAST: CT ABDOMEN WITH CONTRAST: HISTORY: Malignancy at tail of pancreas. The patient is on chemotherapy. COMPARISON: CT chest and abdomen from 03/20/2018. FINDINGS: There are multiple calcifications in the left lobe of the thyroid, which is mildly enlarged. A Port- A-Cath is in place with the tip in good position, in the inferior SVC. No pericardial effusion. No mediastinal adenopathy. No axillary adenopathy. No internal mammary adenopathy. No new suspicious pulmonary nodules. The 5-6 mm pulmonary nodule, right upper lobe, is unchanged. I t appears to have some central calcifications, which may be benign. No pleural effusion. No signifi cant pericardial fluid. A 4 mm nodule in a left accessory lingular fissure is similar. Mass in hepatic segment 6 is unchanged from comparison examinations and is centrally necrotic with so me peripheral capsular retraction, likely old, healed, treated metastatic focus. Scarring of the andrade creatic tail. No peripancreatic adenopathy. Hypodensity, inferior pole, left kidney, is similar. Centrally necrotic retroperitoneal lymph node, adjacent to the celiac trunk, is similar. BONES: No suspicious osteolytic or osteoblastic lesions. IMPRESSION: 1. No evidence of new metastatic disease in the chest or abdomen. 2. Pulmonary nodules are similar in size and not definitively metastatic. 3. Necrotic, treated hepatic segment 6 metastatic focus, without enlargement or solid component. 4. Unchanged cystic treated left paraceliac lymph node. 5. Similar appearance of the thyroid, for which non-emergent ultrasound may be beneficial, if clinic ally warranted. POS: TPC
== END 2018-07-14 08:59 | disposition home or self-care (01) ==
LOC: BICCT 08:58
PROVIDERS: ATTEND Internal Medicine Medical Oncology
DX: C25.2 Malignant neoplasm of tail of pancreas (principal); R91.8 Other nonspecific abnormal finding of lung field; K76.89 Other specified diseases of liver; I89.9 Noninfective disorder of lymphatic vessels and lymph nodes, unspecified
CPT/HCPCS: 71260; 74160; Q9966

== ENCOUNTER 2019-01-15 07:39 | Outpatient (CLI) | payer MEDICARE, BC ==
--- NOTE | 2019-01-15 09:37 | CT ---
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 COMPARISON: CT chest/abdomen on 03/20/2018. FINDINGS: CHEST: The 5 mm right upper lobe pulmonary nodule in the right middle lobe (axial image 27 of 62 of series 3 and coronal image 40 of 145 of series 601) is shown to have calcification on the coronal image, and is consistent with a benign calcified granuloma. The tiny, 4 mm pulmonary nodule in the anterior portion of the left lung (axial image 29 of 60, serie s 3, and coronal image 56 of 145, series 601) is unchanged compared to 03/20/2018 and unchanged since the CT pulmonary angiogram of 09/02/2016, and is also benign. It could be an intrapulmonary lymph n ode. The other very tiny pulmonary nodules mentioned on the 03/20/2018 have not changed and are highly lik talon to be benign. There are no suspicious pulmonary nodules. No mediastinal or hilar lymphadenopath y. No cardiomegaly, pleural effusion, or pneumothorax. No air space opacity or pneumothorax. No th oracic aortic aneurysm or dissection. Left IJ implantable vascular access port remains with the dist al tip at the SVC. No interval change. ABDOMEN: The low density, circumscribed lesion in hepatic segment 6 of the right lobe previously measured appr oximately 3.0 x 3.8 x 2.8 cm. It currently measures approximately 2.6 x 3.7 x 2.8 cm. The slight di fferences may be attributable to slight variation in placement of cursors. It has probably not signi ficantly changed. It is certainly no larger than it was before (but it is larger than on the CT of 0 09/30/2016). No new hepatic lesions. Small cortical cyst at the lower pole of the left kidney. No h ydronephrosis bilaterally. Heterogeneous enhancement pattern of the spleen. The spleen measures sloan roximately 13 x 10 x 4 cm. No interval change. Atherosclerotic calcification without aneurysm of ab dominal aorta. No mass or acute pancreatitis identified (the mass at the tail of the pancreas on 12/2016 is no longer present). No interval change in the appearance of the pancreas since 03/20/2018 . No adrenal nodule. No obvious pathology identified involving the visualized upper portions of col on and small intestine. The soft tissue density material with irregular shape abutting the left side of the celiac artery, anterior surface of left diaphragmatic martir, and the left anterior portion of the upper abdominal aorta measures approximately 1.8 x 2.1 x 2.1 cm (axial image 56 of 87, series 2; coronal image 72 of 145, series 601). This is presumably a treated upper retroperitoneal lymph node. No ascites. No destructive osseous lesion. No interval change overall since 03/20/2018. IMPRESSION: 1. No interval change overall since 03/20/2018. 2. The treated metastatic lesion in the right lobe of the liver is unchanged. 3. The treated left upper retroperitoneal celiac axis lymphadenopathy is unchanged. 4. No evidence of neoplasm recurrence at tail of pancreas. 5. Tiny benign pulmonary nodules, unchanged. POS: TPC
[2019-01-15] MEDS ORDERED: Iopamidol 370 76% 100 ML VIAL ONE (10:55)
== END 2019-01-15 07:40 | disposition home or self-care (01) ==
LOC: CT 07:39
PROVIDERS: ATTEND Internal Medicine Medical Oncology
DX: C25.2 Malignant neoplasm of tail of pancreas (principal); K76.9 Liver disease, unspecified; R59.0 Localized enlarged lymph nodes; R91.8 Other nonspecific abnormal finding of lung field
CPT/HCPCS: 71260; 74160; Q9967

== ENCOUNTER 2019-03-31 13:12 | Outpatient (CLI) | payer MEDICARE, BC ==
--- NOTE | 2019-03-31 13:41 | BD ---
DEXA BONE DENSITY STUDY: HISTORY: Postmenopausal and malignant neoplasm to the tail of the pancreas. FINDINGS: Lumbar Spine: BMD (g/cm2) L1 0.954 T-Score: -0.3 L2 0.936 T-Score: -0.8 L3 0.947 T-Score: -1.2 L4 0.985 T-Score: -0.7 L1-L4 0.956 T-Score: -0.8 Femoral Neck: 0.682 T-Score: -1.5 Total Femur: 0.848 T-Score: -0.8 Impression: 1. Normal bone mineral density of the lumbar spine. Osteopenia of the left femoral neck. 2. Ten-year fracture risk of a major osteoporotic fracture is 11% and of a hip fracture 1.9%. These fracture probabilities are calculated for an untreated patient. POS: TPC
== END 2019-03-31 13:13 | disposition home or self-care (01) ==
LOC: BICMAMMO 13:12
PROVIDERS: ATTEND Internal Medicine Medical Oncology
DX: C25.2 Malignant neoplasm of tail of pancreas (principal)
CPT/HCPCS: 77080

== ENCOUNTER 2019-08-24 08:09 | Outpatient (CLI) | payer MEDICARE, BC ==
[2019-08-24] MEDS ORDERED: Iopamidol-370 76% 500 ML 1 ML ONE (09:59)
--- NOTE | 2019-08-24 10:30 | CT ---
CT CHEST WITH IV CONTRAST CT ABDOMEN WITH IV CONTRAST CT PELVIS WITH IV CONTRAST: HISTORY: Malignant neoplasm of tail of pancreas. Other long-term (current) drug therapy. COMPARISON: 01/15/2019. FINDINGS: Calcifications in the left lobe of the thyroid gland are again noted. No mediastinal, hilar, or axil mj mass or lymphadenopathy is seen. No pleural or pericardial effusions are identified. The small parenchymal lung nodules are stable including the right upper lobe, right lower lobe and the left ac cessory lingular fissure. No new lung nodules are seen. The 3.4 x 2.9 cm low-density mass in the hepatic segment 6 is stable. Left celiac axis lymph node cu rrently measures 13 x 14 cm and is smaller compared to the previous day. The spleen, pancreas, adren al glands, and small cysts in the superior pole of the right kidney and inferior pole of the left kid emil are stable. Circumaortic left renal vein is again seen. No free air, free fluid, or new abdomin opelvic lymphadenopathy is identified. The small bowel loops are not abnormally dilated. Calcified uterine fibroid is seen. There are vascular calcifications without evidence of aneurysmal dilatation of the thoracoabdominal a mariana. There are degenerative changes in the thoracolumbar spine. No osteolytic or osteoblastic lesi ons are seen. IMPRESSION: Interval reduction in the size of the left celiac axis lymph node; otherwise, stable exam. POS: WESA
== END 2019-08-24 08:10 | disposition home or self-care (01) ==
LOC: BICCT 08:09
PROVIDERS: ATTEND Internal Medicine Medical Oncology
DX: C25.2 Malignant neoplasm of tail of pancreas (principal); C78.00 Secondary malignant neoplasm of unspecified lung; C78.7 Secondary malignant neoplasm of liver and intrahepatic bile duct
CPT/HCPCS: 71260; 74177; Q9967

== ENCOUNTER 2019-12-23 12:25 | Outpatient (CLI) | payer MEDICARE, BC ==
--- NOTE | 2019-12-23 13:39 | PET ---
PET W CT Skull to Mid Thigh History: Malignant neoplasm tail of pancreas. Comparison: CT chest abdomen and pelvis July 2019. CT chest and abdomen November 2019 Findings: PET CT from skull-mid thigh was performed after the intravenous administration 10.9 mCi F-1 8 FDG. Mild increased radiotracer uptake of the thyroid involving both lobes. No abnormal radiotracer uptake within the treated right hepatic lobe metastatic lesion which is photopenic. Small pulmonary nodules do not have abnormal FDG avidity. Small left celiac lymph node does not have abnormal increased radiotracer uptake. No abnormal uptake within the pancreatic tail. CT for attenuation correction radiotracer small pulmonary nodules some of which have internal calcifi cations. No pneumothorax. No effusion. No dilated loops of large or small bowel. Diffuse hepatic steatosis. Moderate atherosclerotic plaque. Impression: 1. Sequelae of treated disease. No active metastatic disease within the chest, abdomen or pelvis. 2. Mild relatively symmetric increased FDG avidity within the thyroid can be seen with thyroiditis.
== END 2019-12-23 12:26 | disposition home or self-care (01) ==
LOC: PET 12:25
PROVIDERS: ATTEND Internal Medicine Medical Oncology
DX: C25.2 Malignant neoplasm of tail of pancreas (principal)
CPT/HCPCS: 78815; A9552

== ENCOUNTER 2020-05-04 08:42 | Outpatient (CLI) | payer MEDICARE, BC ==
--- NOTE | 2020-05-04 09:06 | ULT ---
LEFT LOWER EXTREMITY VENOUS DUPLEX EXAM: Date: 05/03/2020 HISTORY: Left leg pain and swelling FINDINGS: Real-time color Doppler evaluation of the left lower extremity was performed from groin to calf. This includes evaluation of the common femoral, superficial and profunda femoral, saphenous, popliteal, a nd posterior tibial veins. This shows a patent deep venous system. There is normal compressibility an d augmentation. There is no evidence of deep venous thrombosis. IMPRESSION: No evidence of deep venous thrombosis of the left lower extremity. POS: TOI
== END 2020-05-04 08:43 | disposition home or self-care (01) ==
LOC: BICRAD 08:42
PROVIDERS: ATTEND Family Medicine
DX: I82.402 Acute embolism and thrombosis of unspecified deep veins of left lower extremity (principal); R79.1 Abnormal coagulation profile